=== PATIENT | female | born 1950 | race Caucasian/White ===

== ENCOUNTER 2021-07-01 11:44 | Emergency (ER) | payer OTHER ==
[~2021-07-01] VITALS: Ht 154.9 cm; Wt 63.5 kg
[2021-07-01] MEDS ORDERED: IRBESARTAN300 MG (12:21)
[2021-07-01] MEDS ORDERED: LEVOTHYROXINE150 MCG (12:21)
== END 2021-07-01 14:56 | disposition home or self-care (01) ==
LOC: ER 11:44
DX: R42 Dizziness and giddiness (principal)

== ENCOUNTER 2021-07-04 10:44 | Outpatient (CLI) | payer OTHER ==
[~2021-07-04 10:44] MED LIST: IRBESARTAN300 MG; LEVOTHYROXINE150 MCG
== END 2021-07-04 10:51 | disposition home or self-care (01) ==
LOC: MAMO-SONO 10:44
PROVIDERS: ATTEND Family Medicine
DX: N60.11 Diffuse cystic mastopathy of right breast (principal); N60.12 Diffuse cystic mastopathy of left breast

== ENCOUNTER 2022-12-10 20:59 | Emergency (ER) | payer OTHER ==
[~2022-12-10] VITALS: Ht 154.9 cm; Wt 55.3 kg
== END 2022-12-11 02:19 | disposition home or self-care (01) ==
LOC: ER 20:59
PROVIDERS: Emergency Medicine
DX: I10 Essential (primary) hypertension (principal); E86.0 Dehydration; R42 Dizziness and giddiness; F32.89 Other specified depressive episodes; E03.9 Hypothyroidism, unspecified

== ENCOUNTER 2023-06-05 11:15 | Emergency (ER) | payer OTHER ==
[~2023-06-05] VITALS: Ht 154.9 cm; Wt 59.0 kg
[2023-06-05] MEDS ORDERED: LOSARTAN POTASS25 MG PO (11:41)
[2023-06-05] MEDS ORDERED: SYNTHROID88 MCG PO (11:41)
== END 2023-06-05 14:47 | disposition home or self-care (01) ==
LOC: ER 11:15
DX: S00.83XA Contusion of other part of head, initial encounter (principal); W19.XXXA Unspecified fall, initial encounter; Y93.89 Activity, other specified; Y92.488 Other paved roadways as the place of occurrence of the external cause; E03.9 Hypothyroidism, unspecified; F10.10 Alcohol abuse, uncomplicated